=== PATIENT | female | born 1935 | race Caucasian/White ===

== ENCOUNTER 2016-12-14 12:47 | Emergency (ER) | payer MEDICARE, OTHER ==
[~2016-12-14 12:47] MED LIST: CELEXA20 MG PO; DOXYCYCLINE MO100 MG PO; FERREX 150 FOR1 EACH PO; LANTUS100 UNIT/1 SQ; LINZESS145 MCG PO; MACROBID 100 M100 MG PO; MUPIROCIN 2%22 GM TP; NITROQUIK SL0.4 MG SL; NOVOLOG VI100 UNIT/1 SC; OXY-IR 5MG5 MG PO; PERCOCET 10-321 EACH PO; PHOSLO667 MG PO; PROAMATINE5 MG PO; PROTONIX40 MG PO; SINEMET 25-2501 EACH PO; VITAMIN D1000 UNI1 PO; XANAX1 MG PO
[2016-12-14 13:57] LABS: BASOPHIL 0.9 % (0-2); EOSINOPHIL 0.9 % (0-7); HCT 36.4 % (37.0-47.0); HGB 11.8 g/dl (12.5-16.0); LYMPHOCYTE 38.4 % (15-48); MCH 31.6 pg (25.0-31.0); MCHC 32.4 g/dL (32.0-36.0); MCV 97.3 fL (78.0-100.0); MONOCYTE 8.5 % (0-12); MPV 9.6 fL (6.0-9.5); NEUTROPHIL 51.3 % (41-80); PLT 154 K/uL (150-400); RBC 3.74 M/uL (4.20-5.40); RDW 13.4 % (11.5-14.0); WBC 3.4 K/uL (4.0-10.5)
[2016-12-14 14:11] LABS: ALBUMIN 3.9 g/dL (3.4-4.8); BILIRUBIN - TOTAL 0.6 mg/dL (0.1-1.0); GLOBULIN (CALCULATION) 2.6 g/dL (2.2-4.2); POTASSIUM 4.4 mmol/L (3.5-5.1); TOTAL PROTEIN 6.5 g/dL (6.4-8.3)
[2016-12-14 14:34] LABS: BILIRUBIN NEGATIVE (NEGATIVE); BLOOD 2+ Ery/uL (NEGATIVE); CLARITY CLEAR (CLEAR); COLOR YELLOW (YELLOW); GLUCOSE (U) NORMAL (NORMAL); KETONE (U) NEGATIVE (NEGATIVE); LEUKOCYTES 3+ Leu/uL (NEGATIVE); NITRITE NEGATIVE (NEGATIVE); PROTEIN 2+ mg/dL (NEGATIVE); UROBILINOGEN 0.2 mg/dL (0.2-1.0); pH 7.5 (5.0-9.0)
[2016-12-14 15:00] LABS: BACTERIA 4+; URINARY WBC TNTC
[2017-03-08] MEDS ORDERED: BENTYL10 MG PO (11:20)
[2017-03-08] MEDS ORDERED: TRANSDERM-SCO1 PATCH TOP (11:21)
[2017-03-08] MEDS ORDERED: ANTIVERT25 MG PO (11:21)
[2017-03-08] MEDS ORDERED: DILAUDID PAIN PUMP (11:21)
[2017-03-08] MEDS ORDERED: PHENERGAN25 M1 PO (11:21)
[2017-03-08] MEDS ORDERED: ZOFRAN ODT4 MG SL (17:15)
== END 2016-12-14 16:21 | disposition home or self-care (01) ==
LOC: FER 12:47
PROVIDERS: Emergency Medicine
DX: R10.32 Left lower quadrant pain (principal); R19.7 Diarrhea, unspecified; E11.22 Type 2 diabetes mellitus with diabetic chronic kidney disease; N18.9 Chronic kidney disease, unspecified; Z88.2 Allergy status to sulfonamides; Z88.1 Allergy status to other antibiotic agents; Z88.8 Allergy status to other drugs, medicaments and biological substances; Z79.4 Long term (current) use of insulin; Z79.899 Other long term (current) drug therapy; Z99.2 Dependence on renal dialysis; Z95.1 Presence of aortocoronary bypass graft; Z98.890 Other specified postprocedural states
CPT/HCPCS: 36415; 74000; 80053; 81001; 85025; 99284

== ENCOUNTER 2016-12-15 10:32 | Emergency (ER) | payer MEDICARE, OTHER ==
[2016-12-15 11:10] LABS: BASOPHIL 0.7 % (0-2); EOSINOPHIL 0.5 % (0-7); HCT 40.7 % (37.0-47.0); HGB 13.4 g/dl (12.5-16.0); LYMPHOCYTE 23.4 % (15-48); MCH 31.8 pg (25.0-31.0); MCHC 32.9 g/dL (32.0-36.0); MCV 96.7 fL (78.0-100.0); MONOCYTE 5.7 % (0-12); MPV 9.6 fL (6.0-9.5); NEUTROPHIL 69.7 % (41-80); PLT 172 K/uL (150-400); RBC 4.21 M/uL (4.20-5.40); RDW 13.4 % (11.5-14.0); WBC 4.4 K/uL (4.0-10.5)
[2016-12-15 11:39] LABS: ALBUMIN 4.6 g/dL (3.4-4.8); BILIRUBIN - TOTAL 0.7 mg/dL (0.1-1.0); CREATININE 4.6 mg/dL (0.5-1.0); GLOBULIN (CALCULATION) 3.1 g/dL (2.2-4.2); POTASSIUM 4.1 mmol/L (3.5-5.1); TOTAL PROTEIN 7.7 g/dL (6.4-8.3)
[2017-03-08] MEDS ORDERED: BENTYL10 MG PO (11:20)
[2017-03-08] MEDS ORDERED: TRANSDERM-SCO1 PATCH TOP (11:21)
[2017-03-08] MEDS ORDERED: ANTIVERT25 MG PO (11:21)
[2017-03-08] MEDS ORDERED: DILAUDID PAIN PUMP (11:21)
[2017-03-08] MEDS ORDERED: PHENERGAN25 M1 PO (11:21)
[2017-03-08] MEDS ORDERED: ZOFRAN ODT4 MG SL (17:15)
== END 2016-12-15 14:11 | disposition home or self-care (01) ==
LOC: FER 10:32
PROVIDERS: Emergency Medicine
DX: K56.41 Fecal impaction (principal); R11.0 Nausea; E11.22 Type 2 diabetes mellitus with diabetic chronic kidney disease; I12.9 Hypertensive chronic kidney disease with stage 1 through stage 4 chronic kidney disease, or unspecified chronic kidney disease; N18.9 Chronic kidney disease, unspecified; G89.29 Other chronic pain; Z88.1 Allergy status to other antibiotic agents; Z88.2 Allergy status to sulfonamides; Z88.8 Allergy status to other drugs, medicaments and biological substances; Z79.4 Long term (current) use of insulin; Z79.891 Long term (current) use of opiate analgesic; Z79.899 Other long term (current) drug therapy; Z99.2 Dependence on renal dialysis
CPT/HCPCS: 36415; 74000; 80053; 82150; 83690; 85025; J2405

== ENCOUNTER 2016-12-21 10:11 | Emergency (ER) | payer MEDICARE, OTHER ==
[2017-03-08] MEDS ORDERED: BENTYL10 MG PO (11:20)
[2017-03-08] MEDS ORDERED: TRANSDERM-SCO1 PATCH TOP (11:21)
[2017-03-08] MEDS ORDERED: DILAUDID PAIN PUMP (11:21)
[2017-03-08] MEDS ORDERED: PHENERGAN25 M1 PO (11:21)
[2017-03-08] MEDS ORDERED: ANTIVERT25 MG PO (11:21)
[2017-03-08] MEDS ORDERED: ZOFRAN ODT4 MG SL (17:15)
== END 2016-12-21 12:15 | disposition home or self-care (01) ==
LOC: FER 10:11
DX: K59.00 Constipation, unspecified (principal); R11.2 Nausea with vomiting, unspecified; Z88.1 Allergy status to other antibiotic agents; Z88.2 Allergy status to sulfonamides; Z88.8 Allergy status to other drugs, medicaments and biological substances; Z98.890 Other specified postprocedural states
CPT/HCPCS: J2212

== ENCOUNTER 2016-12-31 12:18 | Emergency (ER) | payer MEDICARE, OTHER ==
[2016-12-31 13:07] LABS: BASOPHIL 0.6 % (0-2); EOSINOPHIL 0.6 % (0-7); HCT 34.4 % (37.0-47.0); LYMPHOCYTE 25.1 % (15-48); MCH 31.4 pg (25.0-31.0); MCV 98.3 fL (78.0-100.0); MONOCYTE 5.6 % (0-12); MPV 9.8 fL (6.0-9.5); NEUTROPHIL 68.1 % (41-80); PLT 141 K/uL (150-400); RDW 13.3 % (11.5-14.0); WBC 3.4 K/uL (4.0-10.5)
[2016-12-31 13:29] LABS: ALBUMIN 3.9 g/dL (3.4-4.8); BILIRUBIN - TOTAL 0.6 mg/dL (0.1-1.0); CREATININE 4.2 mg/dL (0.5-1.0); GLOBULIN (CALCULATION) 2.6 g/dL (2.2-4.2); POTASSIUM 3.8 mmol/L (3.5-5.1); TOTAL PROTEIN 6.5 g/dL (6.4-8.3)
[2016-12-31 13:34] LABS: LACTIC ACID 1.1 mmol/L (0.5-2.2)
[2016-12-31 14:13] LABS: BACTERIA 4+; BILIRUBIN 1+ mg/dL (NEGATIVE); BLOOD 2+ Ery/uL (NEGATIVE); CLARITY TURBID (CLEAR); COLOR YELLOW (YELLOW); GLUCOSE (U) NORMAL (NORMAL); KETONE (U) TRACE mg/dL (NEGATIVE); LEUKOCYTES 2+ Leu/uL (NEGATIVE); NITRITE NEGATIVE (NEGATIVE); PROTEIN 2+ mg/dL (NEGATIVE); SPECIFIC GRAVITY 1.025 (1.001-1.030); URINARY RBC RARE; URINARY WBC TNTC; UROBILINOGEN 0.2 mg/dL (0.2-1.0); pH 5.5 (5.0-9.0)
[2017-03-08] MEDS ORDERED: BENTYL10 MG PO (11:20)
[2017-03-08] MEDS ORDERED: DILAUDID PAIN PUMP (11:21)
[2017-03-08] MEDS ORDERED: PHENERGAN25 M1 PO (11:21)
[2017-03-08] MEDS ORDERED: ANTIVERT25 MG PO (11:21)
[2017-03-08] MEDS ORDERED: TRANSDERM-SCO1 PATCH TOP (11:21)
[2017-03-08] MEDS ORDERED: ZOFRAN ODT4 MG SL (17:15)
== END 2016-12-31 16:30 | disposition home or self-care (01) ==
LOC: FER 12:18
PROVIDERS: Nurse Practitioner
DX: N30.00 Acute cystitis without hematuria (principal); K59.00 Constipation, unspecified; R10.84 Generalized abdominal pain; R11.0 Nausea; E11.22 Type 2 diabetes mellitus with diabetic chronic kidney disease; N18.6 End stage renal disease; Z99.2 Dependence on renal dialysis; Z88.2 Allergy status to sulfonamides; Z88.1 Allergy status to other antibiotic agents; Z88.8 Allergy status to other drugs, medicaments and biological substances
CPT/HCPCS: 36415; 71010; 80053; 81001; 83605; 85025; 87040; 87088; 93005